=== PATIENT | male | born 1940 | race Caucasian/White ===

== ENCOUNTER 2016-11-29 22:08 | Inpatient (IN) | payer MEDICARE, BC ==
[2016-11-29] MEDS ORDERED: SODIUM CHLORIDE 0.9% 1,000 ML IV STA (22:16)
--- NOTE | 2016-11-29 22:24 | ED ---
Syncope HPI - General Chief Complaint: Syncope Stated Complaint: Syncope/Fall Time Seen by Provider: 11/29/16 22:08 Source: patient, EMS, RN notes reviewed Mode of arrival: EMS Limitations: no limitations - History of Present Illness Initial Comments: This is a 68-year-old male who states he felt as if he had a go the bathroom sediment toilet for a while could not go he got up and next he knew he woke up on the floor. He is unsure exactly how long he was out for he denied any headache neck pain dizziness fevers chills sweats fairly was confused with intermittent periods just after this. During the transfer by EMS became more coherent and was awake alert oriented 4. He denies any fevers chills nausea vomiting sweats or other symptoms. Per EMS however he was noted have atrial fibrillation which apparently is new for him. MD Complaint: loss of consciousness - Related Data Home Medications Medication Instructions Recorded Confirmed Aspirin [Adult Low Dose Aspirin EC] 81 mg PO DAILY 11/29/16 11/29/16 Atorvastatin [Lipitor] 0.5 tab PO DAILY 11/29/16 11/29/16 Lisinopril-Hctz 20-12.5 mg 1 tab PO DAILY 11/29/16 11/29/16 [Zestoretic 20-12.5] Loperamide [Imodium] 2 mg PO DAILY PRN 11/29/16 11/29/16 Triamcinolone Acetonide [Nasacort] 2 spray EA NOSTRIL DAILY PRN 11/29/16 Vit D3/Folic Acid/B2/B6/B12 1 tab PO DIRECTED 11/29/16 11/29/16 [Folgard Tablet] Allergies Allergy/AdvReac Type Severity Reaction Status Date / Time No Known Allergies Allergy Verified 11/29/16 22:17 Review of Systems ROS Statement: Those systems with pertinent positive or pertinent negative responses have been documented in the HPI. ROS Other: All systems not noted in ROS Statement are negative. Past Medical History Past Medical History: Cancer, Hyperlipidemia, Hypertension, Syncope Additional Past Medical History / Comment(s): colon cancer in 2004 treated with surgy, radiation and chemo. History of Any Multi-Drug Resistant Organisms: None Reported Past Surgical History: Bowel Resection Past Psychological History: No Psychological Hx Reported Smoking Status: Current every day smoker Past Alcohol Use History: Occasional Past Drug Use History: None Reported General Exam - General Exam Comments Initial Comments: This is a well-developed well-nourished awake alert oriented 3 male he has a cervical collar on. He had a Malena Coma Scale of 15 Limitations: no limitations General appearance: alert, in no apparent distress Head exam: Present: atraumatic, normocephalic, normal inspection, other (There is an ecchymotic area over the superior mid occiput with no step-off or crepitation is unclear whether this is contusion versus birthmark type configuration the patient states he does not have any pain or tenderness are is no step-off or crepitation) Eye exam: Present: normal appearance, PERRL, EOMI. Absent: scleral icterus, conjunctival injection, periorbital swelling ENT exam: Present: normal exam, mucous membranes moist Neck exam: Present: normal inspection. Absent: tenderness, meningismus, lymphadenopathy Respiratory exam: Present: normal lung sounds bilaterally. Absent: respiratory distress, wheezes, rales, rhonchi, stridor Cardiovascular Exam: Present: irregular rhythm. Absent: systolic murmur, diastolic murmur, rubs, gallop, clicks GI/Abdominal exam: Present: soft, normal bowel sounds. Absent: distended, tenderness, guarding, rebound, rigid Extremities exam: Present: normal inspection, full ROM, normal capillary refill. Absent: tenderness, pedal edema, joint swelling, calf tenderness Back exam: Present: normal inspection Neurological exam: Present: alert, oriented X3, CN II-XII intact Psychiatric exam: Present: normal affect, normal mood Skin exam: Present: warm, dry, intact, normal color. Absent: rash Course Vital Signs 11/29/16 11/29/16 22:11 23:35 Temperature 97.3 F L Pulse Rate 99 76 Respiratory 18 18 Rate Blood Pressure 126/67 137/70 O2 Sat by Pulse 98 98 Oximetry - Reevaluation(s) Reevaluation #1: 11/30/16 00:15 I did clear the patient's cervical collar clinically he had no tenderness palpation no step-off or crepitation on exam of his cervical spine. Patient is return from CAT scan had no changes in his mental status. Still demonstrating irregularity in his rhythm Reevaluation #2: 11/30/16 00:16 I did discuss findings with patient and his family. Per the patient's he did strike his head quite hard there is no evidence of any acute findings on the CAT scan however. EKG Findings - EKG Results: EKG: interpreted by ROSARIO (Atrial fibrillation the rate was 86. QRS duration 64 daily since QTC of 364/435 low-voltage no acute ST-T wave elevations or depressions.) Medical Decision Making - Medical Decision Making I did a long discussion with the patient family regarding findings patient is so having PACs. Patient be admitted for evaluation of syncope and new onset A. fib. - Lab Data Result diagrams: 11/29/16 22:20 11/29/16 22:20 Lab Results 11/29/16 11/29/16 11/29/16 Range/Units 22:20 22:20 22:20 WBC 7.2 (3.8-10.6) k/uL RBC 4.77 (4.30-5.90) m/uL Hgb 15.0 (13.0-17.5) gm/dL Hct 45.9 (39.0-53.0) % MCV 96.1 (80.0-100.0) fL MCH 31.5 (25.0-35.0) pg MCHC 32.8 (31.0-37.0) g/dL RDW 13.6 (11.5-15.5) % Plt Count 207 (150-450) k/uL Neutrophils % 66 % Lymphocytes % 21 % Monocytes % 9 % Eosinophils % 2 % Basophils % 1 % Neutrophils # 4.7 (1.3-7.7) k/uL Lymphocytes # 1.5 (1.0-4.8) k/uL Monocytes # 0.7 (0-1.0) k/uL Eosinophils # 0.1 (0-0.7) k/uL Basophils # 0.1 (0-0.2) k/uL PT (9.0-12.0) sec INR (<1.1) APTT (22.0-30.0) sec Sodium 141 (137-145) mmol/L Potassium 3.5 (3.5-5.1) mmol/L Chloride 102 (98-107) mmol/L Carbon Dioxide 30 (22-30) mmol/L Anion Gap 9 mmol/L BUN 18 (9-20) mg/dL Creatinine 1.30 H (0.66-1.25) mg/dL Est GFR (MDRD) Af Amer >60 (>60 ml/min/1.73 sqM) Est GFR (MDRD) Non-Af 53 (>60 ml/min/1.73 sqM) Glucose 113 H (74-99) mg/dL Calcium 9.1 (8.4-10.2) mg/dL Magnesium 2.2 (1.6-2.3) mg/dL Total Bilirubin 0.6 (0.2-1.3) mg/dL AST 69 H (17-59) U/L ALT 65 (21-72) U/L Alkaline Phosphatase 95 (38-126) U/L Total Creatine Kinase 54 L (55-170) U/L CK-MB (CK-2) 0.4 (0.0-2.4) ng/mL CK-MB (CK-2) Rel Index 0.7 Troponin I <0.012 (0.000-0.034) ng/mL Total Protein 6.5 (6.3-8.2) g/dL Albumin 3.8 (3.5-5.0) g/dL TSH 4.140 (0.465-4.680) mIU/L 11/29/16 Range/Units 22:20 WBC (3.8-10.6) k/uL RBC (4.30-5.90) m/uL Hgb (13.0-17.5) gm/dL Hct (39.0-53.0) % MCV (80.0-100.0) fL MCH (25.0-35.0) pg MCHC (31.0-37.0) g/dL RDW (11.5-15.5) % Plt Count (150-450) k/uL Neutrophils % % Lymphocytes % % Monocytes % % Eosinophils % % Basophils % % Neutrophils # (1.3-7.7) k/uL Lymphocytes # (1.0-4.8) k/uL Monocytes # (0-1.0) k/uL Eosinophils # (0-0.7) k/uL Basophils # (0-0.2) k/uL PT 10.6 (9.0-12.0) sec INR 1.1 (<1.1) APTT 21.6 L (22.0-30.0) sec Sodium (137-145) mmol/L Potassium (3.5-5.1) mmol/L Chloride (98-107) mmol/L Carbon Dioxide (22-30) mmol/L Anion Gap mmol/L BUN (9-20) mg/dL Creatinine (0.66-1.25) mg/dL Est GFR (MDRD) Af Amer (>60 ml/min/1.73 sqM) Est GFR (MDRD) Non-Af (>60 ml/min/1.73 sqM) Glucose (74-99) mg/dL Calcium (8.4-10.2) mg/dL Magnesium (1.6-2.3) mg/dL Total Bilirubin (0.2-1.3) mg/dL AST (17-59) U/L ALT (21-72) U/L Alkaline Phosphatase (38-126) U/L Total Creatine Kinase (55-170) U/L CK-MB (CK-2) (0.0-2.4) ng/mL CK-MB (CK-2) Rel Index Troponin I (0.000-0.034) ng/mL Total Protein (6.3-8.2) g/dL Albumin (3.5-5.0) g/dL TSH (0.465-4.680) mIU/L - Radiology Data Radiology results: report reviewed (I did review the imaging and reports no acute findings are seen.), image reviewed Critical Care Time Critical Care Time: Yes Critical Care Time: 31 minutes of critical care time which includes initial monitoring the EMS call and discussed with paramedics. History physical lab and x-rays on the patient reevaluation patient several occasions. Discussion with the patient family. , Discuss with the admitting physician and orders and documentation the above. Disposition Clinical Impression: Syncope and collapse, Atrial fibrillation, Fall Disposition: ADMITTED IP TO THIS [facility] Condition: Stable
[2016-11-29 22:45] LABS: Basophils # (A) 0.1 k/uL (0-0.2); Basophils % (A) 1 %; CH 33.1; CHCM 34.6; Eosinophils # (A) 0.1 k/uL (0-0.7); Eosinophils % (A) 2 %; HCT 45.9 % (39.0-53.0); HDW 2.64; Luc # (Auto) 0.12; Luc % (Auto) 2; Lymphocytes # (A) 1.5 k/uL (1.0-4.8); Lymphocytes % (A) 21 %; MCH 31.5 pg (25.0-35.0); MCHC 32.8 g/dL (31.0-37.0); MCV 96.1 fL (80.0-100.0); Mean Platelet Volume 7.4; Monocytes # (A) 0.7 k/uL (0-1.0); Monocytes % (A) 9 %; Neutrophils # (A) 4.7 k/uL (1.3-7.7); Neutrophils % (A) 66 %; RBC 4.77 m/uL (4.30-5.90); RDW 13.6 % (11.5-15.5); WBC 7.2 k/uL (3.8-10.6); WBC (Perox) 7.04
--- NOTE | 2016-11-29 22:46 | CT ---
EXAMINATION TYPE: CT brain wo con DATE OF EXAM: 11/29/2016 10:42 PM COMPARISON: NONE HISTORY: syncope CT DLP: 1098.80 mGycm Automated exposure control for dose reduction was used. FINDINGS: There is mild cerebral cortical atrophy. There is no mass effect nor midline shift. There is no sign of intracranial hemorrhage. Calvarium is intact. There is incomplete pneumatization of the left masto id sinus. IMPRESSION: Mild atrophy. No acute intracranial abnormality. There is probably mild left-sided chronic mastoiditi s.
[2016-11-29 22:50] LABS: ALT 65 U/L (21-72); AST 69 U/L (17-59); Alkaline Phosphatase 95 U/L (38-126); Anion Gap 9 mmol/L; Blood Urea Nitrogen 18 mg/dL (9-20); Calcium 9.1 mg/dL (8.4-10.2); Carbon Dioxide 30 mmol/L (22-30); Chloride 102 mmol/L (98-107); Glucose 113 mg/dL (74-99); Magnesium 2.2 mg/dL (1.6-2.3); Non-African American GFR(MDRD) 53 (>60 ml/min/1.73 sqM); Sodium 141 mmol/L (137-145); Total Bilirubin 0.6 mg/dL (0.2-1.3); Total Protein 6.5 g/dL (6.3-8.2)
--- NOTE | 2016-11-29 22:59 | XR ---
EXAMINATION TYPE: XR chest 2V DATE OF EXAM: 11/29/2016 10:44 PM COMPARISON: NONE HISTORY: Syncope TECHNIQUE: Frontal and lateral views of the chest are obtained. FINDINGS: Heart and mediastinum are normal. Lungs are clear. Diaphragm is normal. There are chest le ads. There are no hilar masses. Bony thorax is intact. IMPRESSION: No active cardiopulmonary disease. Normal heart.
[2016-11-29 23:00] LABS: INR 1.1 (<1.1); Prothrombin Time 10.6 sec (9.0-12.0)
[2016-11-29 23:02] LABS: Partial Thromboplastin Time 21.6 sec (22.0-30.0)
[2016-11-29 23:05] LABS: Potassium 3.5 mmol/L (3.5-5.1)
[2016-11-29 23:11] LABS: Creatine Kinase 54 U/L (55-170)
[2016-11-29 23:24] LABS: Creatine Kinase MB 0.4 ng/mL (0.0-2.4); Troponin I <0.012 ng/mL (0.000-0.034)
[2016-11-30] MEDS ORDERED: NALOXONE 0.4 MG/ML 1 ML VIAL IV PRN (00:18)
[2016-11-30] MEDS ORDERED: HEPARIN SODIUM,PORCINE 5,000 UNIT/ML 1 ML VIAL IV ONE (00:20)
[2016-11-30] MEDS ORDERED: LOPERAMIDE 2 MG CAP PO PRN (00:21)
[2016-11-30] MEDS ORDERED: FLUTICASONE 50MCG/SPRAY NASAL 16GM EA NOSTRIL PRN (00:21)
[2016-11-30] MEDS ORDERED: B12 PO SCH (00:30)
[2016-11-30] MEDS ORDERED: B6 PO SCH (00:30)
[2016-11-30] MEDS ORDERED: SODIUM CHLORIDE 0.9% 1,000 ML IV SCH ×2 (00:30→10:30)
[2016-11-30] MEDS ORDERED: FOLIC ACID PO SCH (00:30)
[2016-11-30] MEDS ORDERED: B2 PO SCH (00:30)
[2016-11-30] MEDS ORDERED: VIT D3 PO SCH (00:30)
[2016-11-30] MEDS: HEPARIN SODIUM,PORCINE/D5W PMX 25,000 UNIT in DEXTROSE/WATER 1 500ML.BAG IV SCH ×3 (00:45→12:30)
[2016-11-30 01:41] VITALS: BMI 27.7
[2016-11-30 02:26] LABS: Glucose,Whole Blood 119 mg/dL (75-99)
[2016-11-30 02:55] LABS: Appearance,Urine Clear (Clear); Bilirubin,Urine Negative (Negative); Glucose,Urine (UA) Negative (Negative); Ketones,Urine Negative (Negative); Leukocyte Esterase,Urine Negative (Negative); Nitrite,Urine Negative (Negative); Protein,Urine Negative (Negative); Specific Gravity,Urine 1.011 (1.001-1.035); UA Billing (MACRO vs. MICRO) CHEM
[2016-11-30 05:58] LABS: Glucose,Whole Blood 109 mg/dL (75-99)
--- NOTE | 2016-11-30 07:52 | HP ---
DATE OF ADMISSION: 11/30/2016 CHIEF COMPLAINT: Syncope. This 76 -year-old male went to the bathroom toilet. He got up and woke up on the floor. Unsure what happened to him. He denies any fever, chills, dizziness, sweats, possible vasovagal syncope. He was admitted for monitoring up onto the floor. EKG did show atrial fibrillation, which is new for him. He was admitted for atrial fibrillation, loss of consciousness. Home medications: 1. Aspirin. 2. Lipitor. 3. Zestoretic. 4. Imodium. 5. Nasacort. 6. Vitamin B12. 7. ( ). ALLERGIES: Negative. REVIEW OF SYSTEMS: Other than H&P fourteen-point review of systems negative. PAST MEDICAL HISTORY: Cancer, dyslipidemia, hypertension, syncope colon cancer in 2004 with surgery, chemo resolved. Current every day smoker. No alcohol. No illicit drugs. PHYSICAL EXAMINATION: Well-developed, well-nourished male in no acute distress, alert and oriented x3. HEAD: Normocephalic, atraumatic. Ophthalmologic: Pupils equal, round and reactive to light and accommodation. External ear canals within normal limits. CARDIOVASCULAR: S1, S2. LUNGS: Transmitted upper airway sounds. GI: Soft. EXTREMITIES: No cyanosis, clubbing, or edema. SKIN: Warm, dry, intact. HEART: Irregular rate and rhythm. GI: Soft, nontender. EXTREMITIES: Full range of motion. NECK: Supple. No mass tenderness. VITAL SIGNS: Temperature 97.3, pulse 99, blood pressure 120s to 130s over 60s to 70s. O2 98%. ASSESSMENT: 1. Acute atrial fibrillation new onset acute. 2. Acute syncope unclear etiology. 3. Hypertension. 4. Dyslipidemia. 5. Acute on chronic renal insufficiency stage III. First troponin is negative. TSH is normal. Albumin is normal. One liver enzyme is high. Will follow-up in the next 24 to 48 hours to see how the patient does. Cardiology consult.
[2016-11-30] MEDS ORDERED: ATORVASTATIN 80 MG TAB PO SCH (09:00)
[2016-11-30] MEDS ORDERED: B COMPLEX-VIT C-VIT E-ZINC 1 EACH TAB PO SCH (09:00)
[2016-11-30] MEDS ORDERED: LISINOPRIL-HCTZ 20-12.5 MG 1 EACH TAB PO SCH (09:00)
[2016-11-30] MEDS ORDERED: ATORVASTATIN 40 MG TAB PO SCH (09:00)
[2016-11-30] MEDS ORDERED: ASPIRIN 81 MG CHEW PO SCH (09:00)
--- NOTE | 2016-11-30 10:16 | ECHOF ---
Referral Reason:afib MEASUREMENTS -------- HEIGHT: 175.3 cm WEIGHT: 84.8 kg BP: 117/67 RVIDd: 2.8 cm (< 3.3) IVSd: 0.9 cm (0.6 - 1.1) LVIDd: 4.0 cm (3.9 - 5.3) LVPWd: 1.0 cm (0.6 - 1.1) IVSs: 1.6 cm LVIDs: 2.8 cm LVPWs: 1.4 cm LA Diam: 3.6 cm (2.7 - 3.8) LAESV Index (A-L): 10.30 ml/m Ao Diam: 3.6 cm (2.0 - 3.7) AV Cusp: 2.2 cm (1.5 - 2.6) MV EXCURSION: 14.642 mm (> 18.000) MV EF SLOPE: 78 mm/s (70 - 150) EPSS: 0.3 cm MV E Lc: 0.74 m/s MV DecT: 305 ms MV A Lc: 0.84 m/s MV E/A Ratio: 0.88 RAP: 5.00 mmHg RVSP: 24.48 mmHg FINDINGS -------- This was a technically good study. The left ventricular size is normal. Left ventricular wall thickness is normal. Overall left ventricular systolic function is low-normal with, an EF between 50 - 55 %. The right ventricle is normal in size and function. The left atrium is normal in size. Normal LA size by volume 22+/-6 ml/m2. The right atrium is normal in size. The aortic valve is trileaflet and appears structurally normal. The mitral valve leaflets are mildly thickened. Mild tricuspid regurgitation present. Right ventricular systolic pressure is normal at < 35 mmHg. Trace/mild (physiologic) pulmonic regurgitation. The aortic root size is normal. Normal inferior vena cava with normal inspiratory collapse consistent with estimated right atrial pressure of 5 mmHg. There is no pericardial effusion. CONCLUSIONS -------- 1. This was a technically good study. 2. Mild tricuspid regurgitation present. 3. Right ventricular systolic pressure is normal at < 35 mmHg. 4. Trace/mild (physiologic) pulmonic regurgitation. 5. The aortic root size is normal. 6. There is no pericardial effusion. 7. The left ventricular size is normal. 8. Left ventricular wall thickness is normal. 9. Overall left ventricular systolic function is low-normal with, an EF between 50 - 55 %. 10. The right ventricle is normal in size and function. 11. Normal LA size by volume 22+/-6 ml/m2. 12. The right atrium is normal in size. 13. The aortic valve is trileaflet and appears structurally normal. 14. The mitral valve leaflets are mildly thickened. CUSTOMER EXPERT: Sara Mueller RDCS
[2016-11-30] MEDS ORDERED: RX INFO: IV CONTRAST WAS GIVEN 1 EACH MISC MISCELLANE PRN (10:30)
[2016-11-30] MEDS ORDERED: SODIUM CHLORIDE 0.9% 500 ML IV ONE (10:38)
--- NOTE | 2016-11-30 10:45 | CONS ---
DATE OF CONSULTATION: CHIEF COMPLAINT: Syncope. Mr. Stewart is 76-year-old gentleman with history of hypertension and dyslipidemia who presented to [facility] with having had an episode of syncope at home. Patient states that he got up, went to the bathroom, felt dizzy and sweaty and went down to the floor. He did not have any focal neurological deficits. No chest pain, no palpitations. There is no prior cardiac history. Patient had a similar syncopal event almost 5 years ago in the context of an episode of colitis. Since admission, patient is doing well. When he initially presented to hospital, he was in A. fib, subsequently converted to sinus rhythm. He had an echocardiogram done that shows normal LV systolic function and he had been treated with intravenous heparin. He states that he had a carotid duplex study done a week ago through his primary care physician which was normal. I performed a d-dimer on him that is elevated at 3.35. The d-dimer is elevated, his creatinine is slightly high at 1.3 with a GFR of about 53. Given the unexplained syncope, new onset atrial fibrillation and elevated d-dimer, I am going to get a CTA to rule out pulmonary embolism. Past medical history is significant for hypertension. Medications include Nasacort, Imodium Zestoretic, Lipitor, aspirin. ALLERGIES: There are no known drug allergies. Family history is negative for premature coronary artery disease. Social history is negative for current smoking, EtOH abuse or drug abuse. REVIEW OF SYSTEMS: HEENT is unremarkable. CARDIAC: As described above. RESPIRATORY: Negative. GI: Negative. GENITOURINARY: Negative. ALLERGY/IMMUNOLOGY: Negative. SKIN: Negative. MUSCULOSKELETAL: Negative. CONSTITUTIONAL: Negative. ENDOCRINE: Negative. DERM: Negative. RENAL DIETITIAN: Negative. ONCOLOGICAL: Negative. The rest of the system review is not relevant. Labs show a hemoglobin of 15, platelet count of 207. Potassium is 3.5. Creatinine is 1.3, AST is slightly high, ALT is normal. Two sets of troponins are normal. TSH is normal. D-dimer is elevated. ASSESSMENT: 1. Syncope. 2. Paroxysmal atrial fibrillation. 3. History of hypertension. 4. Dyslipidemia. The exact etiology for the syncope is unclear. It could be due to a pulmonary embolism. I am going to do a CTA, will hydrate him prior. I reviewed his echo results. I will try and obtain a carotid duplex if the pulmonary embolism is ruled out. We will anticoagulate him for his A. fib and we can discharge him home and arrange followup with his own primary care physician. He will need an outpatient stress test at some time. The other etiology for his syncope could be episodes of bradycardia as he went in and out of A. fib.
[2016-11-30 11:19] LABS: Glucose,Whole Blood 89 mg/dL (75-99)
--- NOTE | 2016-11-30 12:12 | CT ---
EXAMINATION TYPE: CT angio chest DATE OF EXAM: 11/30/2016 11:42 AM COMPARISON: Chest x-ray 29 November 2016 HISTORY: Syncope, colon carcinoma, rule out pulmonary embolism CT DLP: 555 mGycm Automated exposure control for dose reduction was used. CONTRAST: CTA scan of the thorax is performed with IV Contrast, patient injected with 80 ml mL of Visipaque 320 , pulmonary embolism protocol. MIP images are created and reviewed. 3D reconstructed images are cre ated on an independent workstation and reviewed. FINDINGS: LUNGS: There is a soft tissue mass present immediately posterior to the right mainstem bronchus measu ring approximately 16 mm in greatest dimension which shows spiculated margin and possible central low attenuation. Scattered emphysematous changes are present. Some tracheal wall thickening and possible tracheal megaly present. Some dependent atelectatic changes are present at the posterior lung bases. Some bronchial wall thickening also present. 3 mm nodule present on axial image 50 in the left upper lobe peripherally shows no definite associated calcification. AORTA: No additional significant abnormality is seen. There are coronary artery calcifications prese nt. Ascending aorta measures 3.7 cm at the root. No evident dissection. MEDIASTINUM: There is satisfactory enhancement of the pulmonary artery and its branches, there is no CT evidence for pulmonary embolism. There are no greater than 1 cm hilar or mediastinal lymph nodes. No pericardial effusion is seen. OTHER: Extensive cystic foci are present of varying sizes within the liver, largest within the poste rior right lobe measuring 3 cm Low dense focus associated with the left thyroid lobe. 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 INDETERMINATE LEFT-SIDED PULMONARY N ODULE. NO EVIDENT PULMONARY EMBOLISM. CORONARY ARTERY DISEASE. ADDITIONAL FINDINGS ABOVE.
[2016-11-30 16:10] VITALS: TEMP 98.6
[2016-11-30 16:28] LABS: Glucose,Whole Blood 88 mg/dL (75-99)
[2016-11-30 16:47] VITALS: BP 147/68; PULSE 97; RESP 16
--- NOTE | 2016-12-18 21:30 | DS ---
DATE OF ADMISSION: 11/30/2016 DATE OF DISCHARGE: 11/30/2016 DISCHARGE MEDICATIONS: 1. Folgard 1 tablet daily. 2. Aspirin 81 daily. 3. Lipitor 80 daily. 4. Lisinopril/hydrochlorothiazide 20/12.5 one daily. 5. Nasacort 2 nasal sprays daily. CONDITION: Stable. PROGNOSIS: Guarded. Ambulate as tolerated. DISCHARGE DIAGNOSES: 1. Vasovagal syncope. 2. New-onset atrial fibrillation. 3. Hypertension. 4. Dyslipidemia. 5. Acute on chronic renal insufficiency, stage III. 6. Chest CTA was performed while in the hospital which showed findings concerning for bronchogenic carcinoma, right lower lobe, indeterminate left-sided pulmonary nodule, but no evidence of bony embolism. 7. History of coronary artery disease, as mentioned above. Patient was seen by Cardiology while in the hospital, also. CONSULTATION: Cardiology. He hydrated him to rule out a pulmonary embolism, anticoagulated him and sent him home. Follow up as an outpatient. CONDITION: Stable. PROGNOSIS: Guarded on discharge.
== END 2016-11-30 19:14 | disposition home or self-care (01) | DRG 310 ==
LOC: EC 22:08 → 6SEL 11-30 00:18 → 4MS4W 11-30 18:15 → 6SEL 11-30 18:25
PROVIDERS: ADMIT Family Medicine; ATTEND Family Medicine
DX: I48.0 Paroxysmal atrial fibrillation (principal); N18.3 Chronic kidney disease, stage 3 (moderate); R55 Syncope and collapse; I12.9 Hypertensive chronic kidney disease with stage 1 through stage 4 chronic kidney disease, or unspecified chronic kidney disease; E78.5 Hyperlipidemia, unspecified; F17.200 Nicotine dependence, unspecified, uncomplicated; Z85.038 Personal history of other malignant neoplasm of large intestine; Z92.21 Personal history of antineoplastic chemotherapy; Z79.82 Long term (current) use of aspirin; Z79.899 Other long term (current) drug therapy
CPT/HCPCS: 36415; 70450; 71020; 71275; 80053; 81003; 82550; 82553; 83735; 84443; 84484; 85025; 85379; 85610; 85730; 93005; 93306; 96361; 96365; 96376; 99291